=== PATIENT | male | born 1945 | race Caucasian/White ===

== ENCOUNTER → 2021-02-25 10:46 | Outpatient (CLI) | payer OTHER, MEDICARE, SELFPAY ==
[2020-10-07 08:08] VITALS: BMI 30.4
--- NOTE | 2021-02-25 10:48 | ART_ITS ---
Reason For Study: bilateral leg pain Procedure A bilateral lower extremity continuous wave Doppler with analog waveform analysis and ankle brachial indexes. Left Segmental Pressures Left brachial= 136mmHg. Left posterior tibial artery = 183mmHg. Left dorsalis pedis artery = 179mmHg. The left dorsalis pedis waveforms are triphasic. The left posterior tibial artery waveforms are triphasic. Right Segmental Pressures Right brachial= 140mmHg. Right posterior tibial artery = 184mmHg. Right dorsalis pedis artery = 183mmHg. The right dorsalis pedis waveforms are triphasic. The right posterior tibial artery waveforms are triphasic. Indices The right ankle brachial index by the dorsalis pedis is 1.31. The right ankle brachial index by the posterior tibial artery is 1.31. The left ankle brachial index by the dorsalis pedis is 1.28. The left ankle brachial index by the posterior tibial artery is 1.31. VL/Ankle Brachial Index Interpretation Summary Normal bilateral lower extremity resting ankle-brachial indices and triphasic D oppler posterior tibialis and dorsalis pedis waveforms Ordering Physician: Lexy Duong Performed By: Aramis Frazier RVT
== END ==
PROVIDERS: PCP Internal Medicine; Referring Provider Internal Medicine; Visit Provider Internal Medicine
DX: M79.604 Pain in right leg (principal); M79.605 Pain in left leg; G62.9 Polyneuropathy, unspecified
CPT/HCPCS: 93922

== ENCOUNTER → 2023-07-05 | Outpatient (CLI) | payer OTHER, MEDICARE, SELFPAY ==
--- NOTE | 2023-07-05 14:08 | STRESSREP ---
Stress Test Report Exercise stress test. 78-year-old male with a history of shortness of breath Stress protocol: Resting EKG demonstrates normal sinus rhythm with a rate of 71 bpm resting blood pressure is 120/82 mmHg. The patient exercised according to the regular Nelson protocol for a total duration of 6 minutes attaining a maximum heart rate of 130 bpm which was 92% of maximum predicted heart rate; the maximum workload was 7 metabolic equivalents. At rest there were no ST or T wave changes noted to suggest ischemia and at peak exercise upsloping ST changes only were noted which did not meet the criteria for ischemia. No clinical angina was noted the test was terminated due to the target heart rate being achieved/fatigue. The peak blood pressure was 200/80 mmHg. this was a hypertensive response to exercise. Rate-pressure product was 20,020. Conclusion: Normal exercise stress test with no EKG criteria for ischemia at a moderate workload. Hypertensive response to exercise
== END | disposition home or self-care (01) ==
LOC: CVS 11:32
PROVIDERS: PCP Internal Medicine; Referring Provider Internal Medicine Pulmonary Disease; Visit Provider Internal Medicine Pulmonary Disease
DX: J84.10 Pulmonary fibrosis, unspecified (principal); R06.02 Shortness of breath
CPT/HCPCS: 93017

== ENCOUNTER → 2024-08-25 | Outpatient (CLI) | payer OTHER, MEDICARE, SELFPAY ==
--- NOTE | 2024-08-25 15:45 | RAD_ITS ---
PROCEDURE: CHEST PA AND LATERAL REASON FOR EXAM: CAD TECHNIQUE: Frontal and lateral views of the chest. COMPARISON: None. FINDINGS: The heart size is normal. Aortic calcifications. Biapical pleural-parenchymal disease, lyhma-[id number]-ajht-left. The lung appears hyperlucent suggesting underlying COPD. Hyperinflation of the lung cort[place]. No pleural effusion or pneumothorax noted. The visualized osseous structures demonstrate degenerative changes. RAD/Chest PA and Lateral IMPRESSION: Biapical pleural-parenchymal disease, ghgkp-[id number]-zlxr-left. Can not exclude a superimposed infiltrate. The lung appears hyperlucent suggesting underlying COPD. Hyperinflation of the lung cortez. Reading Location: [id number]
[2024-08-25 16:26] LABS: Absolute Lymphocyte Count 1.03 X10^3/uL (0.83-4.51); Absolute Neutrophil Count 6.3 X10^3/uL (2.0-7.7); Basophil# 0.06 X10^3/uL; Basophil% 0.7 % (0-1); Eosinophil# 0.17 X10^3/uL; Hematocrit 40.2 % (40-54); Lymphocyte # 1.03 X10^3/ul (0.83-4.51); Lymphocyte % 12.2 % (19-41); Mean Corp Hgb Conc 32.3 g/dL (32-36); Mean Corpuscular Hgb 29.7 pg (27.0-32.0); Mean Platelet Vol. 9.9 fl (6.2-12.0); Monocyte# 0.84 X10^3/uL; NRBC Flagged by Analyzer 0 % (0-5); Neutrophil # 6.27 X10^3/uL (2.7-7.7); Neutrophil % 74.4 % (47-70); Platelet Count 347 K/mm3 (150-450); RBC Distribution Width SD 47.4 fl (35.1-43.9); Red Blood Count 4.37 M/mm3 (4.6-6.2); White Blood Count 8.4 K/mm3 (4.4-11.0)
[2024-08-25 17:08] LABS: Anion Gap 5 (5-15); BUN 11 mg/dL (7-18); BUN/Creat Ratio 13.6 RATIO (10-20); Calcium,Total 9.1 mg/dL (8.5-10.1); Chloride 105 mmol/L (98-107); Creatinine, Serum 0.81 mg/dL (0.70-1.30); EST Glomerular Filtration Rate 98 mL/min (>60); Est Glom Filt Rate - Afr Amer 118 mL/min (>60); Glucose 97 mg/dL (74-106); Potassium 3.8 mmol/L (3.5-5.1); Sodium Level 138 mmol/L (136-145)
== END | disposition home or self-care (01) ==
LOC: RAD 15:44
PROVIDERS: PCP Internal Medicine; Referring Provider Internal Medicine Cardiovascular Disease; Visit Provider Internal Medicine Cardiovascular Disease
DX: I10 Essential (primary) hypertension (principal); R07.89 Other chest pain
CPT/HCPCS: 36415; 71046; 80048; 85025

== ENCOUNTER 2024-09-04 10:37 | Observation (INO) | payer OTHER, MEDICARE, SELFPAY ==
[2024-09-01 07:32] VITALS: BMI 23.1
[2024-09-04] VITALS (16 sets, daily range): BP systolic 132–159; BP diastolic 79–96; PULSE 62–94; RESP 16–18; TEMP 36.6–37.1; O2SAT 96–100; BMI 22.6
--- NOTE | 2024-09-04 10:03 | CL.D_ITS ---
Patient Name: PEPE PEARSON Study Date: 09/04/2024 Performing: Cheng Sosa MD Ht: 80 inches 203.2 cm : 1945 Wt: 209.99 lbs 95.25 kg Age: 79 Gender: male BSA: 2.35 PROCEDURE(S) PERFORMED DC01-(38575)LHC/COR/LV CLINICAL PROFILE AND INDICATIONS Indications: Suspected CAD Heart Failure: None Stress/Imaging Stress/Image Study Performed: No CAD Presentations: Stable angina. CONCLUSIONS High-grade proximal to mid LAD stenosis RECOMMENDATIONS Referred for immediate PCI DESCRIPTION OF PROCEDURE The patient arrived to the procedure lab. The risks and benefits of the procedure as well as a full description of our services here and current unavailability of surgical backup were fully explained to the patient and/or their significant other prior to the catheterization. The Timeout was completed, verifying the correct patient and procedure. The patient's procedural site was prepped and draped in the usual fashion. Local anesthetic was given subcutaneously to right radial region with Lidocaine 2%. Using a modified Seldinger technique, arterial access was obtained via the right radial artery, a 6Fr sheath was inserted. Left Coronary Artery selective angiography was performed in multiple views using a 5 Fr. 4.0 [place] catheter. Right Coronary Artery selective angiography was then performed in multiple views using a 5 Fr. 4.0 [place] catheter. LV to AO pullback pressures were then recorded. CORONARY ANGIOGRAPHY DOMINANCE: Right Dominant LEFT HEART ASSESSMENT Left Ventricular Ejection Fraction: by LV Gram 65 % Normal LV wall motion Normal Left Ventricular systolic function LEFT MAIN: Angiographically normal LEFT ANTERIOR DESCENDING ARTERY: Medium size LAD with a mid segment 95 to 99% stenosis at the takeoff of 2 diagonal branches. The rest of the vessel continues with mild disease CIRCUMFLEX ARTERY: Mild luminal irregularities less than 30% RIGHT CORONARY ARTERY: Mild luminal irregularities less than 30% COMPLICATIONS PROCEDURE MEDICATIONS Versed 1 mg IV Fentanyl 50 mcg IV Versed 1 mg IV Oxygen: 2 L/min via nasal cannula Brilinta 180 mg PO @ 09/04/2024 10:00:18 Heparin given IA 09/04/2024 09:31:49 Heparin 7000 unit(s) IV 09/04/2024 09:59:32 Verapamil 2.5mg, Ntg 100mcgs, 3000 units of Heparin given IA 09/04/2024 09:31:49 SUMMARY OF HEMODYNAMIC DATA Time AIR REST ECG 07:19:09 Art 135/69 (92) 09:35:29 AO 136/82 (106) SA 09:48:53 LV 132/14, 25 09:53:09 LV 122/8, 20 09:53:17 LV 126/15, 26 09:54:54 LV 126/11, 20 09:55:02 LVp 128/10, 22 09:55:07 AOp 124/67 (93) 09:55:14 Signed By Cheng Sosa MD On 09/04/2024 10:02:33 Cheng Sosa MD
--- NOTE | 2024-09-04 10:42 | PCM.DC ---
Discharge Instructions Diet Discharge Diet: Low fat / Low cholesterol DC O2, CPAP, BIPAP needs Home O2 Discharge instructions: No Dressing / Incision Discharge Activity: Return to Normal Activity May resume sexual activity in: No Restrictions Dressing / Incision Call your doctor if you observe: Fever of 101 or Higher, Coldness, Increased Pain, Numbness or Tingling and Change in Color Follow Up Care Please Follow Up With: Cheng Sosa MD When: 2-4 weeks Test Results: Test results from this visit will be discussed in further detail at your follow-up appointment, if applicable. Discharge Plan Admission Attending Provider: Cheng Sosa Primary Care Provider: Lexy Duong Instructions Print Language: Austrian Discharge Orders/Prescriptions Prescriptions: New aspirin 81 mg Tablet,Chewable 81 mg PO BREAKFAST Qty: 100 3RF clopidogrel 75 mg Tablet 75 mg PO DAILY Qty: 30 11RF nitroglycerin 0.4 mg tablet, sublingual 0.4 mg sublingual Q5M PRN (Reason: chest pain) Qty: 14 3RF Rx Instructions: do not exceed 3 doses per episode Continued latanoprost 0.005 % drops 1 drp OPHTHALMIC QPM timolol 0.25 % drops 1 drp OPHTHALMIC BID simvastatin 20 mg tablet 20 mg PO QHS amlodipine 5 mg tablet 5 mg PO DAILY ICaps AREDS [id number]-uh-[id number] capsule 1 cap PO BID budesonide 0.5 mg/2 mL suspension for nebulization inhalation Q12H albuterol sulfate 2.5 mg /3 mL (0.083 %) solution for nebulization 1.25 mg inhalation Q4H PRN (Reason: shortness of breath or wheezing) metoprolol tartrate 50 mg tablet 25 mg PO BID Qty: 60 1RF coenzyme Q10 30 mg capsule 30 mg PO QDAY Discontinued aspirin 81 mg capsule 81 mg PO DAILY Referrals / Follow Up: Lexy Duong MD [Primary Care Provider] - Disposition Disposition (needs filled in before D/C Order can be placed): Home, Self Care
--- NOTE | 2024-09-04 11:06 | CRPHASE1_ITS ---
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 Our purpose is to help you have a full recovery and achieve the goals you set for yourself. Over the years many of our patients have returned to activities they assumed they would never do again! We can help restore your confidence and motivation to make lifestyle changes that can have a significant impact on your health and quality of life! We can help answer questions and concerns you may have about exercise, lifestyle, medications, diet, stress and anxiety which are common following a hospitalization. WE monitor ECG and vital signs during exercise and discuss your progress with you and report to your physician(s). Cardiac Rehab is proven to help reduce readmissions, improve functional capacity and lower recurrence of problems with your heart. Our Cardiac Rehab program is Certified by the [place] [employer]monary [employer] (AACVPR) and Accredited by the [place] [employer] through our [facility]. You can contact us at . We invite you to call us with your deanna ns or to get started in our program. If you have other questions or concerns be sure to ask your physician/provider during your follow-up visit. WE look forward to seeing you!
--- NOTE | 2024-09-04 11:09 | CRPH1.INSTRU ---
General Education Discussed with Patient CAD and cardiac anatomy and function:: Patient communicates acknowledgment and Family communicates acknowledgment Explanation of diagnoses and procedures:: Patient communicates acknowledgment and Family communicates acknowledgment Sign/Symptoms of MO:: Patient communicates acknowledgment and Family communicates acknowledgment Antiplatelet therapy: Patient communicates acknowledgment and Family communicates acknowledgment Proper use of NTG-SL: Patient communicates acknowledgment and Family communicates acknowledgment Emergency procedures and activation of EMS: Patient communicates acknowledgment and Family communicates acknowledgment Compliance of all prescribed medications: Patient communicates acknowledgment and Family communicates acknowledgment Smoking Risk Factors Patient Nicotine/Smoking Risk Factors Are:: Cigarettes (former) Recommendations Recommendations Include:: Previous smoker; encourage continued cessation Response Code Nicotine/Smoking Response Code:: Patient communicates acknowledgment and Family communicates acknowledgment Dyslipidemia Risk Factors Patient Dyslipidemia Risk Factors Are:: Total Cholesterol, Triglycerides, HDL and LDL Recommendations Recommendations Include:: Lipid profile provided and Therapeutic Lifestyle Change dietary guidelines Response Code Dyslipidemia Response Code:: Patient communicates acknowledgment and Family communicates acknowledgment Overweight/Obesity Risk Factors Patient Overweight/Obesity Risk Factors Are:: BMI Normal [24-29 & > 65 years old] (23.1) Recommendations Recommendations Include:: Exercise 5-7 times/week Response Code Overweight/Obesity:: Patient communicates acknowledgment and Family communicates acknowledgment Hypertension Recommendations Recommendations Include:: Maintain BP <130/85, DASH dietary guidelines and Decrease/maintain normal body weight Response Code Hypertension:: Patient communicates acknowledgment and Family communicates acknowledgment Heart Disease Risk Factors Patient Heart Disease Risk Factors Are:: Previous cardiac event Recommendations Recommendations Include:: Educated family members of their risk and Educated family members of importance of prevention of heart disease Response Code Heart Disease Response Code:: Patient communicates acknowledgment and Family communicates acknowledgment Diabetes Risk Factors Patient Diabetes Risk Factors Are:: No documented hx of diabetes Response Code Diabetes:: Not instructed Metabolic Syndrome Risk Factors Patient Metabolic Syndrome Risk Factors Are [3 of 5]:: Hypertension Recommendations Recommendations Include:: Encouraged follow-up with Primary Care Physician Response Code Metabolic Syndrome Response Code:: Patient communicates acknowledgment and Family communicates acknowledgment Sedentary Recommendations Recommendations Include:: Aerobic exercise 5-7 times/week for 20-30 minutes continuously, Benefits of regular exercise, Discussed home walking program and Monitored Outpatient Cardiac Rehab Response Code Sedentary Response Code:: Patient communicates acknowledgment and Family communicates acknowledgment Stress Risk Factors Patient Stress Risk Factors Are:: Patient denies stress as a risk factor Response Code Stress Response Code:: Not instructed
[2024-09-04] MEDS: 0.9% Normal Saline (1000mL) 1,000 ML 150 ML IV (12:05)
--- NOTE | 2024-09-04 12:23 | CL.I_ITS ---
Patient Name: PEPE PEARSON Study Date: 09/04/2024 Performing: Alejandro Mcarthur MD Ht: 80 inches 203.2 cm : 1945 Wt: 210.3 lbs 95.25 kg Age: 79 Gender: male BSA: 2.35 PROCEDURE(S) PERFORMED IC12-(36797/[id number])LONA W/WO PTCA, SINGLE CORONARY ARTERY CLINICAL PROFILE AND CO-MORBIDITIES Indications: Suspected CAD Heart Failure: None Stress/Imaging Stress/Image Study Performed: No CAD Presentations: Stable angina. CONCLUSIONS Successful LONA Prox LAD using Jonh Fronier 3.0x12 mm, post-dilated using 3.25 mm balloon, optimized proximally using 3.5 mm balloon RECOMMENDATIONS ASA Indefinitley P2Y12 inhibitors for atleast 6 months DESCRIPTION OF PROCEDURE The patient arrived to the procedure lab. The risks and benefits of the procedure as well as a full description of our services here and current unavailability of surgical backup were fully explained to the patient and/or their significant other prior to the catheterization. The Timeout was completed, verifying the correct patient and procedure. The patient's procedural site was prepped and draped in the usual fashion. Local anesthetic was given subcutaneously to right radial region with Lidocaine 2% Using a modified Seldinger technique,arterial access was obtained via the right radial artery, a 6Fr sheath was inserted. Left Coronary Artery selective angiography was performed in multiple views using a 5 Fr. 4.0 [place] catheter. Right Coronary Artery selective angiography was then performed in multiple views using a 5 Fr. 4.0 [place] catheter. LV to AO pullback pressures were then recorded.The images were reviewed and options discussed. A decision was then made to proceed with an Intervention, IVUS or other adjunct procedure. XB 3.0 Guide catheter was inserted and engaged into the LCA. Runthrough Guide wire was advanced to the LAD. [place] Jonh 3.0x12 Drug Eluting stent was inserted. Angiogram performed post stent deployment. NC Emerge 3.25x8 Balloon catheter was inserted. NC Euphora 3.5x6 Balloon catheter was inserted. PTCA balloon inflated at 16 atms for 11 secs. Angiogram performed post balloon dilatation. The arterial sheath was pulled and a TR Band was applied for hemostasis w/ 13 ml INTERVENTION INFORMATION LESION SITE: LAD (Proximal) Lesion Complexity: Non-High/Non-C, lesion length: 10 mm, culprit lesion: Yes, In-stent restenosis: No Pre Stenosis: 95 % Pre intervention MEAGHAN flow: 3 PROCEDURE: Drug Eluting Stent with post dilatation Post Stenosis: 0 % Post intervention MEAGHAN flow: 3 Lesion Devices: Terumo .014 180cm Runthrough Extra Floppy straight Cordis 6 Fr XB3.0 100cm Guide Catheter Medtronic 3.0 x 12 JONH FRONTIER LONA Blu Sci NC EMERGE MR 3.25x08 BALLOON Medtronic NC EUPHORA RX 3.5x06 BALLOON COMPLICATIONS No Complications PROCEDURE MEDICATIONS Versed 1 mg IV Fentanyl 50 mcg IV Versed 1 mg IV Oxygen: 2 L/min via nasal cannula Brilinta 180 mg PO @ 09/04/2024 10:00:18 Heparin given IA 09/04/2024 09:31:49 Heparin 7000 unit(s) IV 09/04/2024 09:59:32 Heparin 3000 unit(s) IV 09/04/2024 10:17:11 Heparin 2000 unit(s) IV 09/04/2024 10:41:55 Nitro 200 mcg IC 09/04/2024 10:24:17 Verapamil 2.5mg, Ntg 100mcgs, 3000 units of Heparin given IA 09/04/2024 09:31:49 SUMMARY OF HEMODYNAMIC DATA Time AIR REST ECG 07:19:09 Art 135/69 (92) 09:35:29 AO 136/82 (106) SA 09:48:53 LV 132/14, 25 09:53:09 LV 122/8, 20 09:53:17 LV 126/15, 26 09:54:54 LV 126/11, 20 09:55:02 LVp 128/10, 22 09:55:07 AOp 124/67 (93) 09:55:14 AO 153/85 (115) 10:14:01 AO 161/93 (120) 10:23:24 AO 140/91 (113) 10:30:02 AO 150/99 (121) 10:31:48 12:20:50 Signed By Alejandro Mcarthur MD On 09/04/2024 12:23:29 Alejandro Mcarthur MD
[2024-09-04] MEDS: Clopidogrel Bisulfate 300 MG Tablet PO (17:12)
[2024-09-04] MEDS: Atorvastatin Calcium 10 MG Tablet PO (21:04)
[2024-09-04] MEDS: Metoprolol Tartrate 25 MG Tablet PO (21:04)
[2024-09-04] MEDS: Latanoprost 0.005% 1 Bottle 1 DRP OPHTHALMIC (21:05)
[2024-09-05 04:14] VITALS: BP 143/93; PULSE 67; RESP 18; TEMP 36.5; O2SAT 100
[2024-09-05 07:18] LABS: Hematocrit 39.4 % (40-54); Hemoglobin 12.9 g/dL (13.0-16.5); Mean Corp Hgb Conc 32.7 g/dL (32-36); Mean Corpuscular Hgb 29.8 pg (27.0-32.0); Mean Platelet Vol. 9.9 fl (6.2-12.0); Platelet Count 247 K/mm3 (150-450); RBC Distribution Width CV 13.5 % (11.6-14.6); RBC Distribution Width SD 45.6 fl (35.1-43.9); Red Blood Count 4.33 M/mm3 (4.6-6.2); White Blood Count 6.9 K/mm3 (4.4-11.0)
[2024-09-05 07:52] VITALS: O2SAT 94
[2024-09-05 08:23] LABS: ALB/GLOB Ratio 0.8 RATIO (0.9-2.4); AST(SGOT) 19 U/L (15-37); Alanine Aminotransfer ALT/SGPT 22 U/L (16-61); Albumin, Serum 3.1 g/dL (3.2-5.0); Alkaline Phosphatase 160 U/L (45-117); Anion Gap 6 (5-15); BUN 8 mg/dL (7-18); BUN/Creat Ratio 11.2 RATIO (10-20); Calcium,Total 9.1 mg/dL (8.5-10.1); Chloride 105 mmol/L (98-107); Creatinine, Serum 0.72 mg/dL (0.70-1.30); EST Glomerular Filtration Rate 112 mL/min (>60); Est Glom Filt Rate - Afr Amer 136 mL/min (>60); Estimated Creatinine Clearance 97.19 ml/min; Globulin 3.7 g/dL (2.2-4.2); Glucose 109 mg/dL (74-106); Potassium 3.6 mmol/L (3.5-5.1); Protein, Total 6.8 g/dL (6.4-8.2); Sodium Level 136 mmol/L (136-145)
[2024-09-05 09:17] VITALS: BP 149/89; PULSE 80
[2024-09-05] MEDS: Multivitamin (Healthy Eyes) Capsule 1 CAP PO (09:17)
[2024-09-05] MEDS: Metoprolol Tartrate 25 MG Tablet PO (09:17)
[2024-09-05] MEDS: Aspirin 81 MG TAB.CHEW PO (09:17)
[2024-09-05] MEDS: Clopidogrel Bisulfate 75 MG Tablet PO (09:18)
[2024-09-05] MEDS: amLODIPine 5 MG Tablet PO (09:18)
--- NOTE | 2024-09-05 09:30 | PCM.PN.BLA ---
Progress Note Doing well. Denies any complaints. No chest pains. No shortness of breath. Okay to discharge home today. Follow-up with Dr. Sosa as outpatient.
[2024-09-05 09:44] VITALS: BP 149/89; PULSE 80; RESP 16; TEMP 36.7; O2SAT 99
--- NOTE | 2024-09-05 10:36 | CASEMGMT ---
Patient has order for discharge. RN CM in to discuss needs at discharge, at bedside. Patient denies needs or help at discharge. Patient had no further questions or concerns.
[2024-09-08 17:50] LABS: ACT Activated Clotting Time 222 sec (74-137)
[2024-09-08 17:50] LABS: ACT Activated Clotting Time 233 sec (74-137)
== END 2024-09-05 13:54 | disposition home or self-care (01) ==
LOC: CLSP 11:12 → PCU 15:47
PROVIDERS: Internal Medicine Cardiovascular Disease; Admitting Provider Internal Medicine Cardiovascular Disease; PCP Internal Medicine; Referring Provider Internal Medicine Cardiovascular Disease; Visit Provider Internal Medicine Cardiovascular Disease
DX: I25.118 Atherosclerotic heart disease of native coronary artery with other forms of angina pectoris (principal); I10 Essential (primary) hypertension; E78.5 Hyperlipidemia, unspecified; R94.31 Abnormal electrocardiogram [ECG] [EKG]; Z79.899 Other long term (current) drug therapy; J45.909 Unspecified asthma, uncomplicated; Z87.891 Personal history of nicotine dependence
CPT/HCPCS: 36415; 80053; 85027; 85347; 92928; 93005; 93458; 96360; 96361; 99152; 99153; 99221; C1725; Q9967; C1769; C1874; C1887; C1894; C9600; G0378